=== PATIENT | male | born 2005 | race Caucasian/White ===

== ENCOUNTER 2024-11-24 15:28 | Emergency (ER) | payer SELFPAY ==
--- NOTE | 2024-11-24 15:32 | ED_ITS ---
HPI - URI/Sore Throat General Chief Complaint: Upper Respiratory Infection Stated Complaint: Sore Throat Time Seen by Provider: 11/24/24 15:39 Source: patient and RN notes reviewed Mode of arrival: ambulatory Limitations: no limitations History of Present Illness HPI Narrative: 19-year-old male presents with concern for sore throat. Reports symptoms started yesterday. He denies runny nose, stuffy nose, cough, headache, stomach ache, fever, body aches, chills, sweats. MD elicited complaint: sore throat Related Data Home Medications ?Medication ?Instructions ?Recorded ?Confirmed ?Last Taken ?Type escitalopram oxalate 10 mg tablet 10 mg PO DAILY 11/24/24 11/24/24 Unknown History Allergies Allergy/AdvReac Type Severity Reaction Status Date / Time No Known Allergies Allergy Verified 11/24/24 15:36 Review of Systems Review of Systems: CONSTITUTIONAL: Denies malaise, chills, sweats, or fever. EYES: Denies visual changes, redness, or discharge. ENT: Denies rhinorrhea, congestion, sinus pain, otalgia. Reports sore throat. CARDIOVASCULAR: Denies chest pain, palpitations, or edema. RESPIRATORY: Denies cough. Denies dyspnea. GASTROINTESTINAL: Denies abdominal pain, nausea, vomiting, diarrhea SKIN: Denies rash or itching. MUSCULOSKELETAL: Denies myalgia. NEUROLOGIC: Denies headache. All systems reviewed & are unremarkable except as noted in HPI and below PMFSH Comments At time of signature, agree with nursing past medical, surgical, social and family history. There is no relevant family history pertinent to the presenting complaint Exam Narrative: GENERAL: Well-appearing, well-nourished, and in no acute distress. HEAD: Normocephalic EYES: PERRLA, conjunctivae clear ENT: Nares clear. Mucous membranes moist. TM pearly johnson with sharp light reflex bilaterally; no tragal tenderness. Oropharynx erythematous without lesions. Tonsils not enlarged and without exudate, no drooling, no hoarseness, no trismus, uvula midline. NECK: Supple. No lymphadenopathy CHEST: Clear to auscultation, breath sounds equal. No wheezing, rhonchi, rales, or stridor. No respiratory distress, speaks in full sentences. HEART: Regular rate and rhythm. No murmur heard. SKIN: Warm, dry, no rash. NEURO: Alert and oriented x3. PSYCH: Normal mood and affect Course Course Emergency Course: Patient is aware of diagnosis, understands and agrees to treatment plan. Anticipatory guidance given. Patient agrees to follow-up as directed and is aware of reasons to seek care at the emergency department. Portions of this record may have been created with voice recognition software Level of Care: Express Care Visit Vital Signs Vital signs: Reviewed. MDM - URI/Sore Throat MDM Narrative Medical decision making narrative: Differential diagnosis considered: Waite virus, strep pharyngitis, allergic rhinitis, upper respiratory tract infection, sinusitis, rhinosinusitis, nasopharyngitis. viral pharyngitis, otitis media, otitis externa, pneumonia, bronchitis, viral cough syndrome, viral syndrome, and influenza. Exam findings show no acute concerns or changes; patient is non-toxic appearing and is in no distress. Patient is appropriate for outpatient treatment and follow-up. Lab Data Attestation: I reviewed the patient's lab results. Critical Care Time Critical Care Time Critical Care Time: No Discharge Plan Discharge Clinical Impression: Acute streptococcal pharyngitis Patient Disposition: Home Condition: Stable Instructions: Strep Throat (ED) Additional Instructions: -Take the medication as prescribed. Throw away the toothbrush after 24hours of antibiotic. -Eat and drink things that are easy to swallow, like tea or soup, or popsicles to suck on. -Oral rinses such as: Salt water gargles and/or may use topical anesthetic (eg. Chloraseptic spray) or lozenges to relieve dryness or throat pain). -Take Tylenol and ibuprofen as needed for pain and fever as directed. -Frequent hand washing or hand branch operations manager is one of the best ways to prevent spread of infection. -Follow up with primary care provider in 2-3 days if condition is not improving; or seek ER visit if you have trouble breathing, cannot drink enough fluids, have muffled voice, difficulty opening your mouth, or severe swelling. Patient Language: Ukrainian Prescriptions: New penicillin V potassium 500 mg tablet 500 mg PO Q12H 10 Days Qty: 20 0RF No Action escitalopram oxalate 10 mg tablet 10 mg PO DAILY Follow-up/Referrals: PHYSICIAN,STATUS CONTROLLER [Primary Care Provider] - Time of Disposition: 15:49
[2024-11-24 15:40] VITALS: BP 137/81; PULSE 73; RESP 18; TEMP 36.9; O2SAT 98
[2024-11-24 15:47] LABS: EDSTREPNEGPOS1 Positive (Negative)
== END 2024-11-24 15:53 | disposition home or self-care (01) ==
PROVIDERS: Emergency Provider Nurse Practitioner
DX: J02.0 Streptococcal pharyngitis (principal)
CPT/HCPCS: 87880; 99203; G0463